=== PATIENT | female | born 1955 | race Hispanic/Latino ===

== ENCOUNTER 2018-11-11 12:54 | Emergency (ER) | payer MEDICARE, OTHER ==
--- NOTE | 2018-11-11 13:31 | Emergency Department Report ---
Blank Doc - Documentation Documentation: This is a 63-year-old female that presents with hyperglycemia. Stated has been out of her medications. Denies any symptoms. This initial assessment diagnostic orders/clinical plan/treatment(s) is/are subject to change based on patient's health status, clinical progression and re- assessment by fellow clinical providers in the ED. Further treatment and workup at subsequent clinical providers discretion. Patient/guardians urged not to elope from ED s their condition may be serious if not clinically assessed and managed. Initial orders include: 1-Patient sent to MAIN ED for further evaluation and treatment 2- Labs 3- UA
[2018-11-11 14:50] LABS: Bacteria,Urine 1+ /HPF (Negative); Bilirubin,Urine NEG (Negative); Blood,Urine NEG (Negative); Color,Urine Straw (Yellow); Mucus,Urine FEW /HPF; Protein,Urine <15 mg/dL mg/dL (Negative); Urobilinogen,Urine < 2.0 mg/dL (<2.0)
[2018-11-11 15:00] LABS: Basophils # (Auto) 0.1 K/mm3 (0.0-0.1); Basophils % (Auto) 0.7 % (0.0-1.8); Eosinophils # (Auto) 0.1 K/mm3 (0.0-0.4); Eosinophils % (Auto) 0.5 % (0.0-4.3); Hematocrit 44.3 % (30.3-42.9); Hemoglobin 15.4 gm/dl (10.1-14.3); Lymphocytes # (Auto) 2.7 K/mm3 (1.2-5.4); Lymphocytes % (Auto) 23.6 % (13.4-35.0); Mean Corpuscular HGB Conc 35 % (30-34); Mean Corpuscular Volume 85 fl (79-97); Monocytes # (Auto) 0.7 K/mm3 (0.0-0.8); Monocytes % (Auto) 6.1 % (0.0-7.3); Platelet Count 314 K/mm3 (140-440); Red Blood Count 5.21 M/mm3 (3.65-5.03); Red Cell Distribution Width 12.6 % (13.2-15.2)
[2018-11-11 15:15] LABS: Alanine Aminotransferase 23 units/L (7-56); Albumin 4.3 g/dL (3.9-5); BUN/Creatinine Ratio 16; Blood Urea Nitrogen 8 mg/dL (7-17); Calcium 9.6 mg/dL (8.4-10.2); Hemolysis Index 4
[2018-11-11] MEDS ORDERED: HumuLIN R IV ONE (17:41)
[2018-11-11] MEDS ORDERED: NACL 0.9% 1000 ML 1,000 ML IV ONE ×2 (17:41)
[2018-11-11] MEDS ORDERED: K-DUR PO ONE (17:41)
--- NOTE | 2018-11-11 17:43 | Emergency Department Report ---
ED General Adult HPI - General Chief complaint: Hyperglycemia Stated complaint: HIGH GLUCOSE Time Seen by Provider: 11/11/18 13:30 Source: patient Mode of arrival: Ambulatory Limitations: No Limitations - History of Present Illness Initial comments: 63-year-old with a past medical history of diabetes presents with the complaint of elevated blood sugar. Patient was seen by her PCP Dr. Chaves earlier today and her blood glucose was 544. Patient has not had her metformin therapy for the past month. Patient complains of polydipsia as well as polyuria. Patient denies vomiting or abdominal pain but complains of nausea. Patient denies chest pain or shortness of breath. Severity scale (0 -10): 0 - Related Data Allergies Allergy/AdvReac Type Severity Reaction Status Date / Time No Known Allergies Allergy Verified 11/11/18 12:55 ED Review of Systems ROS: Stated complaint: HIGH GLUCOSE Other details as noted in HPI Constitutional: denies: chills, fever Eyes: denies: eye pain, eye discharge, vision change ENT: denies: ear pain, throat pain Respiratory: denies: cough, shortness of breath, wheezing Cardiovascular: denies: chest pain, palpitations Endocrine: increased thirst, increased urine Gastrointestinal: denies: abdominal pain, nausea, diarrhea Genitourinary: denies: urgency, dysuria, discharge Musculoskeletal: denies: back pain, joint swelling, arthralgia Skin: denies: rash, lesions Neurological: denies: headache, weakness, paresthesias Psychiatric: denies: anxiety, depression Hematological/Lymphatic: denies: easy bleeding, easy bruising ED Past Medical Hx - Past Medical History Hx Diabetes: Yes - Surgical History Past Surgical History?: No - Social History Smoking Status: Never Smoker Substance Use Type: None ED Physical Exam - General Limitations: No Limitations General appearance: alert, in no apparent distress, other (comfortable) - Head Head exam: Present: atraumatic, normocephalic - Eye Eye exam: Present: normal appearance - ENT ENT exam: Present: mucous membranes moist - Neck Neck exam: Present: normal inspection - Respiratory Respiratory exam: Present: normal lung sounds bilaterally. Absent: respiratory distress - Cardiovascular Cardiovascular Exam: Present: regular rate, normal rhythm. Absent: systolic murmur, diastolic murmur, rubs, gallop - GI/Abdominal GI/Abdominal exam: Present: soft, normal bowel sounds - Extremities Exam Extremities exam: Present: normal inspection - Back Exam Back exam: Present: normal inspection - Neurological Exam Neurological exam: Present: alert, oriented X3 - Psychiatric Psychiatric exam: Present: normal affect, normal mood - Skin Skin exam: Present: warm, dry, intact, normal color. Absent: rash ED Course Vital Signs 11/11/18 13:31 Temperature 98.7 F Pulse Rate 91 H Respiratory 18 Rate Blood Pressure 145/93 O2 Sat by Pulse 97 Oximetry ED Medical Decision Making - Lab Data Result diagrams: 11/11/18 14:35 11/11/18 14:35 - Medical Decision Making Patient received IV fluids and blood glucose improved. Patient has a prescription for metformin prescribed by her PCP. Patient be discharged to follow-up as an outpatient. Patient states he has a history of hypokalemia and takes medication for this. Patient states that she does not want aggressive IV therapy to treat her hypokalemia as she needs to get her family member who is disabled at home by themselves. Patient states she will continue to follow up with Dr. Chaves. Patient also made aware that the IV insulin we'll also lower her potassium. She still states that she wants to be discharged to attend to her family member. - Differential Diagnosis DKA; hyperglycemic hyperosmolar non ketotic state; Dehydration; Critical care attestation.: If time is entered above; I have spent that time in minutes in the direct care of this critically ill patient, excluding procedure time. ED Disposition Clinical Impression: Diabetes mellitus with hyperglycemia, Hypokalemia Disposition: DC-01 TO HOME OR SELFCARE Is pt being admited?: No Does the pt Need Aspirin: No Condition: Stable Instructions: Diabetes Mellitus Type 2 in Adults (ED) Referrals: PRIMARY CAREMD [Primary Care Provider] - 3-5 Days Time of Disposition: 19:34 Print Language: FAROESE
[2018-11-11] MEDS: KCL 10MEQ/100ML 10 MEQ/100 ML BAG IV SCH (19:36)
[2018-11-11 20:30] VITALS: BP 139/81
== END 2018-11-11 20:30 | disposition home or self-care (01) ==
LOC: ED 12:54
DX: E11.65 Type 2 diabetes mellitus with hyperglycemia (principal); E87.6 Hypokalemia
CPT/HCPCS: 36415; 80053; 81001; 82550; 82805; 82962; 83735; 85025; 93005; 93010; 96360; 99283; J7030